=== PATIENT | female | born 1980 | race Caucasian/White ===

== ENCOUNTER 2016-08-19 20:55 | Emergency (ER) | payer SELFPAY ==
[2016-08-20] MEDS ORDERED: PREDNISONE 20 MG TABLET ONE (00:27)
[2016-08-20 00:43] LABS: ABSOLUTE NEUTROPHIL COUNT 5.6 K/mm3 (1.8-7.7); BASO # 0.1 K/mm3 (0.0-0.2); BASO % 0.5 % (0.2-1.0); EOS # 0.4 (0.0-0.5); EOS % 3.9 % (0.9-2.9); HEMOGLOBIN 12.6 gm/l (12.0-16.0); IMM NEUT% 0.2 % (0-1); LYMPH # 3.8 (1.0-4.8); LYMPH % 36.4 % (15-45); MEAN CELL VOLUME 94.8 fl (81.0-99.0); MEAN CORPUSCULAR HEMOGLOBIN 31.4 pg (27.0-31.0); MEAN CORPUSCULAR HGB CONC 33.2 g/dl (33.0-37.0); MONO # 0.5 (0.0-0.8); MONO % 4.9 % (4-12); NEUT % 54.1 % (43-75); PLATELET COUNT 178 K/mm3 (130-400); RED CELL DISTRIBUTION WIDTH 11.9 % (11.5-14.5)
[2016-08-20 01:10] LABS: ALB/GLOB RATIO 1.5 (>1.0); CALCIUM 9.2 mg/dL (8.6-10.3)
== END 2016-08-20 02:23 | disposition home or self-care (01) ==
LOC: ED 20:55
DX: R21 Rash and other nonspecific skin eruption (principal); R10.9 Unspecified abdominal pain; F17.210 Nicotine dependence, cigarettes, uncomplicated
CPT/HCPCS: 85025; 80053; 99283 ×2; J7512